=== PATIENT | male | born 1945 | race American Indian/Alaskan Native ===

== ENCOUNTER 2020-11-28 00:53 | Observation (INO) | payer MEDICARE ==
--- NOTE | 2020-11-28 02:52 | Emergency Department Report ---
ED Altered Mental Status HPI - General Chief Complaint: Altered Mental Status Stated Complaint: ALTERED MENTAL STATUS PUI?: No Time Seen by Provider: 11/28/20 02:43 Source: patient, family, EMS Mode of arrival: Ambulatory Limitations: Altered Mental Status - History of Present Illness Initial Comments: Chief complaint: Altered mental status HPI: This is a 75-year-old male with history of lung cancer on chemotherapy who presents via EMS from police station for altered mental status. Patient was being transported from [place]. The driver medic of the car dropped him off at police station near [place]. Patient denies any pain or discomfort. He does think that the year 2002. He lives in [facility] according to his driver medic's license. His daughter was contacted by phone by nursing staff member. She states that over the last two weeks he has been forgetful. Patient retired. He lives alone. Patient was not able to give his address. According to his driver medic's license, Patient lives [address] [place] [address] daughter: Domenica Blankenship/ [phone] LACY Complaint: confusion -: month(s) (Several months according to the daughter's history to nurse) Severity: mild Consistency of Symptoms: unknown Context: cancer (Lung cancer on chemotherapy) Associated Symptoms: denies other symptoms - Related Data Allergies Allergy/AdvReac Type Severity Reaction Status Date / Time No Known Allergies Allergy Unverified 11/28/20 01:23 ED Review of Systems ROS: Stated complaint: ALTERED MENTAL STATUS Other details as noted in HPI Comment: Unobtainable due to pts medical conditions (Patient would not cooperate with history) ED Past Medical Hx - Past Medical History Previous Medical History?: Yes Hx Hypertension: Yes Hx of Cancer: Yes (lung) Hx Asthma: Yes Hx COPD: Yes Additional medical history: not sure if patient is giving me his correct PMH - Surgical History Past Surgical History?: Yes Additional Surgical History: abdominal - Social History Smoking Status: Current Every Day Smoker Substance Use Type: None ED Physical Exam - General Limitations: Altered Mental Status General appearance: alert, in no apparent distress, other (Ambulatory without difficulty, nontoxic-appearing, cantankerous slightly agitated) - Head Head exam: Present: atraumatic, normocephalic - Eye Eye exam: Present: normal appearance - ENT ENT exam: Present: mucous membranes moist - Neck Neck exam: Present: normal inspection, full ROM - Respiratory Respiratory exam: Present: normal lung sounds bilaterally. Absent: respiratory distress, wheezes, rales, rhonchi - Cardiovascular Cardiovascular Exam: Present: regular rate, normal rhythm, normal heart sounds. Absent: systolic murmur, diastolic murmur, rubs, gallop - GI/Abdominal GI/Abdominal exam: Present: soft, normal bowel sounds. Absent: distended, tenderness, guarding, rebound - Rectal Rectal exam: Present: deferred - Extremities Exam Extremities exam: Present: normal inspection - Back Exam Back exam: Present: normal inspection - Neurological Exam Neurological exam: Present: alert, other (Oriented to name, unclear situation, he understands that he is at a hospital) - Psychiatric Psychiatric exam: Present: normal affect, agitated - Skin Skin exam: Present: warm, dry, intact, normal color. Absent: rash ED Course Vital Signs 11/28/20 01:30 Temperature 98.7 F Pulse Rate 92 H Respiratory 16 Rate Blood Pressure 152/100 [Left] O2 Sat by Pulse 95 Oximetry - Lab Data Result diagrams: 11/28/20 03:00 11/28/20 03:00 Lab Results 11/28/20 11/28/20 11/28/20 Range/Units 03:00 03:00 03:00 WBC 6.9 (4.5-11.0) K/mm3 RBC 3.77 (3.65-5.03) M/mm3 Hgb 12.4 (11.8-15.2) gm/dl Hct 36.1 (35.5-45.6) % MCV 96 H (84-94) fl MCH 33 H (28-32) pg MCHC 34 (32-34) % RDW 13.5 (13.2-15.2) % Plt Count 219 (140-440) K/mm3 Lymph % (Auto) 6.2 L (13.4-35.0) % [place] % (Auto) 6.5 (0.0-7.3) % Eos % (Auto) 0.1 (0.0-4.3) % Baso % (Auto) 0.5 (0.0-1.8) % Lymph # (Auto) 0.4 L (1.2-5.4) K/mm3 [place] # (Auto) 0.5 (0.0-0.8) K/mm3 Eos # (Auto) 0.0 (0.0-0.4) K/mm3 Baso # (Auto) 0.0 (0.0-0.1) K/mm3 Seg Neutrophils % 86.7 H (40.0-70.0) % Seg Neutrophils # 6.0 (1.8-7.7) K/mm3 Sodium 132 L (137-145) mmol/L Potassium 3.8 (3.6-5.0) mmol/L Chloride 92.9 L (98-107) mmol/L Carbon Dioxide 29 (22-30) mmol/L Anion Gap 14 mmol/L BUN 23 H (9-20) mg/dL Creatinine 0.9 (0.8-1.3) mg/dL Estimated GFR > 60 ml/min BUN/Creatinine Ratio 26 % Glucose 198 H (75-100) mg/dL Calcium 9.4 (8.4-10.2) mg/dL Total Bilirubin 0.60 (0.1-1.2) mg/dL AST 15 (5-40) units/L ALT 10 (7-56) units/L Alkaline Phosphatase 76 (35-129) units/L Ammonia < 10.0 L (25-60) umol/L Troponin T < 0.010 (0.00-0.029) ng/mL Total Protein 8.1 (6.3-8.2) g/dL Albumin 4.2 (3.9-5) g/dL Albumin/Globulin Ratio 1.1 % TSH (0.270-4.200) mlU/mL Urine Color (Yellow) Urine Turbidity (Clear) Urine pH (5.0-7.0) Ur Specific Sunflower (1.003-1.030) Urine Protein (Negative) mg/dL Urine Glucose (UA) (Negative) mg/dL Urine Ketones (Negative) mg/dL Urine Blood (Negative) Urine Nitrite (Negative) Urine Bilirubin (Negative) Urine Urobilinogen (<2.0) mg/dL Ur Leukocyte Esterase (Negative) Urine WBC (Auto) (0.0-6.0) /HPF Urine RBC (Auto) (0.0-6.0) /HPF Urine Mucus /HPF Salicylates (2.8-20.0) mg/dL Acetaminophen (10.0-30.0) ug/mL Plasma/Serum Alcohol (0-0.07) % 11/28/20 11/28/20 11/28/20 Range/Units 03:00 03:00 03:00 WBC (4.5-11.0) K/mm3 RBC (3.65-5.03) M/mm3 Hgb (11.8-15.2) gm/dl Hct (35.5-45.6) % MCV (84-94) fl MCH (28-32) pg MCHC (32-34) % RDW (13.2-15.2) % Plt Count (140-440) K/mm3 Lymph % (Auto) (13.4-35.0) % [place] % (Auto) (0.0-7.3) % Eos % (Auto) (0.0-4.3) % Baso % (Auto) (0.0-1.8) % Lymph # (Auto) (1.2-5.4) K/mm3 [place] # (Auto) (0.0-0.8) K/mm3 Eos # (Auto) (0.0-0.4) K/mm3 Baso # (Auto) (0.0-0.1) K/mm3 Seg Neutrophils % (40.0-70.0) % Seg Neutrophils # (1.8-7.7) K/mm3 Sodium (137-145) mmol/L Potassium (3.6-5.0) mmol/L Chloride (98-107) mmol/L Carbon Dioxide (22-30) mmol/L Anion Gap mmol/L BUN (9-20) mg/dL Creatinine (0.8-1.3) mg/dL Estimated GFR ml/min BUN/Creatinine Ratio % Glucose (75-100) mg/dL Calcium (8.4-10.2) mg/dL Total Bilirubin (0.1-1.2) mg/dL AST (5-40) units/L ALT (7-56) units/L Alkaline Phosphatase (35-129) units/L Ammonia (25-60) umol/L Troponin T (0.00-0.029) ng/mL Total Protein (6.3-8.2) g/dL Albumin (3.9-5) g/dL Albumin/Globulin Ratio % TSH 2.710 (0.270-4.200) mlU/mL Urine Color (Yellow) Urine Turbidity (Clear) Urine pH (5.0-7.0) Ur Specific Sunflower (1.003-1.030) Urine Protein (Negative) mg/dL Urine Glucose (UA) (Negative) mg/dL Urine Ketones (Negative) mg/dL Urine Blood (Negative) Urine Nitrite (Negative) Urine Bilirubin (Negative) Urine Urobilinogen (<2.0) mg/dL Ur Leukocyte Esterase (Negative) Urine WBC (Auto) (0.0-6.0) /HPF Urine RBC (Auto) (0.0-6.0) /HPF Urine Mucus /HPF Salicylates < 0.3 L (2.8-20.0) mg/dL Acetaminophen < 5.0 L (10.0-30.0) ug/mL Plasma/Serum Alcohol (0-0.07) % 11/28/20 11/28/20 Range/Units 03:00 Unknown WBC (4.5-11.0) K/mm3 RBC (3.65-5.03) M/mm3 Hgb (11.8-15.2) gm/dl Hct (35.5-45.6) % MCV (84-94) fl MCH (28-32) pg MCHC (32-34) % RDW (13.2-15.2) % Plt Count (140-440) K/mm3 Lymph % (Auto) (13.4-35.0) % [place] % (Auto) (0.0-7.3) % Eos % (Auto) (0.0-4.3) % Baso % (Auto) (0.0-1.8) % Lymph # (Auto) (1.2-5.4) K/mm3 [place] # (Auto) (0.0-0.8) K/mm3 Eos # (Auto) (0.0-0.4) K/mm3 Baso # (Auto) (0.0-0.1) K/mm3 Seg Neutrophils % (40.0-70.0) % Seg Neutrophils # (1.8-7.7) K/mm3 Sodium (137-145) mmol/L Potassium (3.6-5.0) mmol/L Chloride (98-107) mmol/L Carbon Dioxide (22-30) mmol/L Anion Gap mmol/L BUN (9-20) mg/dL Creatinine (0.8-1.3) mg/dL Estimated GFR ml/min BUN/Creatinine Ratio % Glucose (75-100) mg/dL Calcium (8.4-10.2) mg/dL Total Bilirubin (0.1-1.2) mg/dL AST (5-40) units/L ALT (7-56) units/L Alkaline Phosphatase (35-129) units/L Ammonia (25-60) umol/L Troponin T (0.00-0.029) ng/mL Total Protein (6.3-8.2) g/dL Albumin (3.9-5) g/dL Albumin/Globulin Ratio % TSH (0.270-4.200) mlU/mL Urine Color Yellow (Yellow) Urine Turbidity Clear (Clear) Urine pH 5.0 (5.0-7.0) Ur Specific Sun[place] 1.025 (1.003-1.030) Urine Protein 30 mg/dl (Negative) mg/dL Urine Glucose (UA) Neg (Negative) mg/dL Urine Ketones 20 (Negative) mg/dL Urine Blood Neg (Negative) Urine Nitrite Neg (Negative) Urine Bilirubin Neg (Negative) Urine Urobilinogen 2.0 (<2.0) mg/dL Ur Leukocyte Esterase Neg (Negative) Urine WBC (Auto) 1.0 (0.0-6.0) /HPF Urine RBC (Auto) 1.0 (0.0-6.0) /HPF Urine Mucus Few /HPF Salicylates (2.8-20.0) mg/dL Acetaminophen (10.0-30.0) ug/mL Plasma/Serum Alcohol < 0.01 (0-0.07) % - Radiology Data Radiology results: report reviewed Patient Name: PATRICIA ECHEVARRIA Gender: Male Date of : 1945 Referring Provider: BENIGNO RAZO Organization: [facility] Accession Number: [id number] Requested Date: November 28, 2020 03:08 Report Status: Final Requested Procedure: 1 Procedure Description: CT head/brain wo con Modality: CT Findings Reporting MD: Julia Casey Dictation Time: November 28, 2020 02:20 Elevator Technician: Not available Vice President Payer Date: CT head/brain wo con INDICATION / CLINICAL INFORMATION: Altered Mental Status. TECHNIQUE: Axial CT imaging of the brain was obtained without contrast. Coronal and sagittal reformatted imaging obtained and reviewed. All CT scans at this location are performed using CT dose reduction for ALARA by means of automated exposure control. COMPARISON: None available. FINDINGS: No intracranial hemorrhage, mass or midline shift is noted. No extra-axial fluid collection or suggestion of acute territorial infarction. There is age-appropriate mild atrophy involving the cerebrum and cerebellum. There is fairly extensive white matter disease bilaterally most likely due to severe microangiopathy. There is fairly extensive mucosal thickening throughout both maxillary sinuses and throughout the ethmoid air cells bilaterally. Minimal mucosal thickening is noted in the sphenoid sinuses and frontal sinuses. A small air-fluid level is noted within the left maxillary sinus. No calvarial abnormality. IMPRESSION: 1. Pansinusitis mostly affecting the maxillary sinuses and ethmoid air cells. 2. Age-related changes within the brain but no definite acute intracranial abnormality. Signer Name: Julia Casey MD Signed: 11/28/2020 2:20 AM Workstation Name: [email or web address] Patient Name: PATRICIA ECHEVARRIA Gender: Male Date of : 1945 Referring Provider: BENIGNO RAZO Organization: [facility] Accession Number: [id number] Requested Date: November 28, 2020 02:49 Report Status: Final Requested Procedure: 1 Procedure Description: XR chest 1V ap Modality: XR Findings Reporting MD: Julia Casey Dictation Time: November 28, 2020 02:46 Elevator Technician: Not available Vice President Payer Date: CHEST 1 VIEW INDICATION / CLINICAL INFORMATION: Altered Mental Status. COMPARISON: None available. FINDINGS: SUPPORT DEVICES: None. HEART / MEDIASTINUM: No significant abnormality. LUNGS / PLEURA: There is focal parenchymal disease surrounding the left pulmonary hilum. There is questionable pulmonary nodule in the left perihilar region as well measuring 2 cm. The right lung is grossly clear. No pleural effusion. No pneumothorax. ADDITIONAL FINDINGS: No significant additional findings. IMPRESSION: 1. Left perihilar parenchymal disease with possible 2 cm pulmonary nodule. It is difficult to determine whether findings are due to pneumonia or possibly malignancy. Chest CT with contrast, if possible, would better evaluate this region. Signer Name: Julia Casey MD Signed: 11/28/2020 2:46 AM Workstation Name: [email or web address] - Medical Decision Making Altered mental status: Differential diagnosis includes Metastatic intracranial tumor with history of lung cancer, dementia, acute delirium due to infection such as UTI, CVA, vitamin deficiency such as Warnicke's encephalopathy Patient lives alone, daughter lives in [place]. Patient has a large suitcase full clothes. He also has a trash bag containing his belongings. I am unable to contact daughter. However daughter did speak with EMS and another staff member. Chemistry notable for hyponatremia. X-ray revealed small lung mass. Patient is admitted to the hospital service for further treatment evaluation. Critical care attestation.: If time is entered above; I have spent that time in minutes in the direct care of this critically ill patient, excluding procedure time. ED Disposition Clinical Impression: Lung cancer, Acute encephalopathy, Dehydration Disposition: DC-[id number] OP ADMIT IP TO THIS HOSP Is pt being admited?: Yes Does the pt Need Aspirin: No Condition: Stable
[2020-11-28] MEDS ORDERED: HALOPERIDOL LACTATE 5 MG/1 ML INJ IM ONE (02:54)
[2020-11-28] MEDS ORDERED: LORazepam 2 MG/ML VIAL IM ONE (02:54)
[2020-11-28 03:14] LABS: Basophils % (Auto) 0.5 % (0.0-1.8); Eosinophils % (Auto) 0.1 % (0.0-4.3); Hematocrit 36.1 % (35.5-45.6); Hemoglobin 12.4 gm/dl (11.8-15.2); Lymphocytes # (Auto) 0.4 K/mm3 (1.2-5.4); Lymphocytes % (Auto) 6.2 % (13.4-35.0); Mean Corpuscular HGB Conc 34 % (32-34); Mean Corpuscular Volume 96 fl (84-94); Monocytes # (Auto) 0.5 K/mm3 (0.0-0.8); Monocytes % (Auto) 6.5 % (0.0-7.3); Platelet Count 219 K/mm3 (140-440); Red Blood Count 3.77 M/mm3 (3.65-5.03); Red Cell Distribution Width 13.5 % (13.2-15.2)
[2020-11-28 03:18] LABS: Bilirubin,Urine NEG (Negative); Blood,Urine NEG (Negative); Color,Urine Yellow (Yellow); Mucus,Urine FEW /HPF
--- NOTE | 2020-11-28 03:25 | Cat Scan Report ---
CT head/brain wo con INDICATION / CLINICAL INFORMATION: Altered Mental Status. TECHNIQUE: Axial CT imaging of the brain was obtained without contrast. Coronal and sagittal reformatted imaging obtained and reviewed. All CT scans at this location are performed using CT dose reduction for ALAR A by means of automated exposure control. COMPARISON: None available. FINDINGS: No intracranial hemorrhage, mass or midline shift is noted. No extra-axial fluid collection or sugges tion of acute territorial infarction. There is age-appropriate mild atrophy involving the cerebrum an d cerebellum. There is fairly extensive white matter disease bilaterally most likely due to severe mi croangiopathy. There is fairly extensive mucosal thickening throughout both maxillary sinuses and throughout the eth moid air cells bilaterally. Minimal mucosal thickening is noted in the sphenoid sinuses and frontal s inuses. A small air-fluid level is noted within the left maxillary sinus. No calvarial abnormality. IMPRESSION: 1. Pansinusitis mostly affecting the maxillary sinuses and ethmoid air cells. 2. Age-related changes within the brain but no definite acute intracranial abnormality. Signer Name: Julia Casey MD Signed: 11/28/2020 3:20 AM Workstation Name: [id number]
--- NOTE | 2020-11-28 03:50 | XRay Report ---
CHEST 1 VIEW INDICATION / CLINICAL INFORMATION: Altered Mental Status. COMPARISON: None available. FINDINGS: SUPPORT DEVICES: None. HEART / MEDIASTINUM: No significant abnormality. LUNGS / PLEURA: There is focal parenchymal disease surrounding the left pulmonary hilum. There is que stionable pulmonary nodule in the left perihilar region as well measuring 2 cm. The right lung is darrell ssly clear. No pleural effusion. No pneumothorax. ADDITIONAL FINDINGS: No significant additional findings. IMPRESSION: 1. Left perihilar parenchymal disease with possible 2 cm pulmonary nodule. It is difficult to determi ne whether findings are due to pneumonia or possibly malignancy. Chest CT with contrast, if possible, would better evaluate this region. Signer Name: Julia Casey MD Signed: 11/28/2020 3:46 AM Workstation Name: [id number]
[2020-11-28 04:03] LABS: Alanine Aminotransferase 10 units/L (7-56); Albumin 4.2 g/dL (3.9-5); BUN/Creatinine Ratio 26; Blood Urea Nitrogen 23 mg/dL (9-20); Calcium 9.4 mg/dL (8.4-10.2); Hemolysis Index 0
[2020-11-28] MEDS ORDERED: ONDANSETRON 4 MG/2 ML INJ IV PRN (04:29)
[2020-11-28] MEDS ORDERED: ACETAMINOPHEN 325 MG TAB PO PRN (04:29)
[2020-11-28] MEDS ORDERED: MAGNESIUM HYDROXIDE (MOM) ORAL LIQD UDC PO PRN (04:29)
[2020-11-28] MEDS ORDERED: SENNOSIDES 8.6 MG TAB PO PRN (04:29)
[2020-11-28] MEDS ORDERED: ALUM-MAG HYDROXIDE-SIMETHICONE 200-200-20MG/5ML ORAL LIQD 30 ML PO PRN (04:29)
--- NOTE | 2020-11-28 04:32 | History and Physical Report ---
History of Present Illness Date of examination: 11/28/20 Date of admission: 11/28/20 Chief complaint: Confused History of present illness: This is a 75-year-old male with history of lung cancer on chemotherapy who presents via EMS from police station for altered mental status. Patient was being transported from [place]. The yard driver of the car dropped him off at police station near [place]. Patient denies any pain or discomfort. He does think that the year 2002. He lives in [facility] according to his yard driver's license. His daughter was contacted by phone by nursing staff member. She states that over the last two weeks he has been forgetful. Patient retired. He lives alone. ED work-up WBC 6.9, hemoglobin 12.4, platelets 219, sodium 133, potassium 3.8, creatinine 0.9, serum glucose 198, calcium 9.4 CT of the head done no acute finding. Patient seen at bedside in the ED patient is sleeping easy to arouse. Patient is confused came with altered mental status. Reviewed the lab medication record and vital signs no acute finding PT OT consulted social work also consulted. Past History Past Medical History: cancer (lung cancer) Past Surgical History: No surgical history Social history: no significant social history, Lives alone Family history: no significant family history (Unable to get history from patient due to altered mental status) Medications and Allergies Allergies Allergy/AdvReac Type Severity Reaction Status Date / Time No Known Allergies Allergy Verified 11/28/20 04:33 Review of Systems Ears, nose, mouth and throat: no epistaxis, no bleeding gums Cardiovascular: no chest pain Respiratory: no congestion Genitourinary Male: no hematuria Rectal: no hemorrhoids Musculoskeletal: muscle weakness Integumentary: no rash, no pruritis Neurological: confusion, memory loss, sensory deficit Psychiatric: confusion Hematologic/Lymphatic: no easy bruising, no easy bleeding Allergic/Immunologic: no urticaria Exam - Constitutional Vitals: Temp Pulse Resp BP Pulse Ox 98.7 F 92 H 16 152/100 95 11/28/20 01:30 11/28/20 01:30 11/28/20 01:30 11/28/20 01:30 11/28/20 01:30 General appearance: Present: no acute distress, cachectic - EENT Eyes: Present: PERRL ENT: hearing intact, clear oral mucosa - Neck Neck: Present: supple, normal ROM - Respiratory Respiratory effort: normal Respiratory: bilateral: CTA - Cardiovascular Heart Sounds: Present: S1 & S2. Absent: rub, click - Extremities Extremities: pulses symmetrical, No edema Peripheral Pulses: within normal limits - Abdominal General gastrointestinal: Present: soft, non-tender, non-distended, normal bowel sounds Male genitourinary: Present: normal - Integumentary Integumentary: Present: clear, warm, dry - Musculoskeletal Musculoskeletal: strength equal bilaterally, generalized weakness - Psychiatric Psychiatric: other (confused) - Neurologic Neurologic: CNII-XII intact, moves all extremities - Allied Health Allied health notes reviewed: nursing, PT, OT, social work HEART Score - HEART Score Troponin: Troponin T < 0.010 ng/mL (0.00-0.029) 11/28/20 03:00 Results - Labs CBC & Chem 7: 11/28/20 03:00 11/28/20 03:00 Labs: Abnormal lab results 11/28/20 11/28/20 11/28/20 Range/Units 03:00 03:00 03:00 MCV 96 H (84-94) fl MCH 33 H (28-32) pg Lymph % (Auto) 6.2 L (13.4-35.0) % Lymph # (Auto) 0.4 L (1.2-5.4) K/mm3 Seg Neutrophils % 86.7 H (40.0-70.0) % Sodium 132 L (137-145) mmol/L Chloride 92.9 L (98-107) mmol/L BUN 23 H (9-20) mg/dL Glucose 198 H (75-100) mg/dL Ammonia < 10.0 L (25-60) umol/L Salicylates (2.8-20.0) mg/dL Acetaminophen (10.0-30.0) ug/mL 11/28/20 11/28/20 Range/Units 03:00 03:00 MCV (84-94) fl MCH (28-32) pg Lymph % (Auto) (13.4-35.0) % Lymph # (Auto) (1.2-5.4) K/mm3 Seg Neutrophils % (40.0-70.0) % Sodium (137-145) mmol/L Chloride (98-107) mmol/L BUN (9-20) mg/dL Glucose (75-100) mg/dL Ammonia (25-60) umol/L Salicylates < 0.3 L (2.8-20.0) mg/dL Acetaminophen < 5.0 L (10.0-30.0) ug/mL Assessment and Plan - Patient Problems (1) Acute encephalopathy Current Visit: Yes Status: Acute Plan to address problem: Questionable cause May be due to concern metastasis from the lungs Safety and fall precaution at all time CT of the head showed age related changes within the brain but no definite acute intracranial abnormalities tray line worker, PT and OT consults. Follow-up with recommendation Chest x-ray (2) Dehydration Current Visit: Yes Status: Acute Plan to address problem: Low sodium likely secondary to dehydration Gentle IV hydration with normal saline Monitor sodium level (3) Lung cancer Current Visit: Yes Status: Acute Plan to address problem: Supportive care Per patient medical record patient is on chemotherapy (4) Hyponatremia Current Visit: Yes Status: Acute Plan to address problem: Likely secondary to dehydration Continue IV hydration with normal saline monitor sodium level (5) DVT prophylaxis Current Visit: Yes Status: Acute Plan to address problem: Subcutaneous Lovenox
[2020-11-28] MEDS ORDERED: hydrALAZINE 20 MG/1 ML INJ IV PRN (06:43)
[2020-11-28] MEDS: D5W/0.9% NACL 1,000 ML IV SCH (09:59)
[2020-11-28] MEDS ORDERED: ENOXAPARIN 30 MG/0.3 ML INJ SUB-Q SCH (10:00)
[2020-11-28] MEDS ORDERED: amLODIPine 5 MG TAB PO SCH (10:00)
[2020-11-28] MEDS ORDERED: ENOXAPARIN 40 MG/0.4 ML INJ SUB-Q SCH (10:00)
[2020-11-28] MEDS: INSULIN LISPRO 100 UNIT/ML SUB-Q SCH ×3 (10:02→16:30)
--- NOTE | 2020-11-28 13:09 | Event Note ---
Date: 11/28/20 Patient seen and examined today. Mental status improving. patient still with some part of his memory about arriving to the hospital. Will obtain CT of the chest on arrival to head. Anticipate discharge in a.m. she he states that he has a oncologist that he follows. We will also try to reach out to the daughter to get further information about his clinical condition.
--- NOTE | 2020-11-28 13:40 | Cat Scan Report ---
CT CHEST WITH CONTRAST INDICATION / CLINICAL INFORMATION: metastatic disease 100 ml omni 300 . TECHNIQUE: Axial CT images were obtained through the chest after IV contrast. All CT scans at this location are performed using CT dose reduction for ALARA by means of automated exposure control. COMPARISON: None available. FINDINGS: HEART: No significant abnormality. THORACIC AORTA: No significant abnormality. MEDIASTINUM and ALONDRA: No significant abnormality. LUNGS: Homogeneous 2.6 x 1.7 standard lobular density left lower lobe is present Chronic lung disease is present No acute air space or interstitial disease. PLEURA: No significant pleural effusion. No pneumothorax. ADDITIONAL FINDINGS: None. UPPER ABDOMEN: Upper abdominal imaging is limited secondary to streak artifact SKELETAL SYSTEM: No significant abnormality. IMPRESSION: 1. Left lower lobe lung mass worrisome for lung carcinoma. Signer Name: Josh Amaya MD Signed: 11/28/2020 1:36 PM Workstation Name: [id number]
[2020-11-29] MEDS: D5W/0.9% NACL 1,000 ML IV SCH (00:17)
[2020-11-29 03:45] VITALS: BP 144/91
[2020-11-29 05:54] LABS: Eosinophils % (Auto) 0.6 % (0.0-4.3); Hematocrit 31.1 % (35.5-45.6); Hemoglobin 10.7 gm/dl (11.8-15.2); Lymphocytes # (Auto) 0.3 K/mm3 (1.2-5.4); Lymphocytes % (Auto) 8.8 % (13.4-35.0); Mean Corpuscular HGB Conc 35 % (32-34); Mean Corpuscular Volume 95 fl (84-94); Monocytes # (Auto) 0.3 K/mm3 (0.0-0.8); Monocytes % (Auto) 8.1 % (0.0-7.3); Platelet Count 209 K/mm3 (140-440); Red Blood Count 3.29 M/mm3 (3.65-5.03); Red Cell Distribution Width 13.3 % (13.2-15.2)
[2020-11-29 06:13] LABS: Alanine Aminotransferase 9 units/L (7-56); Albumin 3.2 g/dL (3.9-5); Blood Urea Nitrogen 14 mg/dL (9-20); Calcium 8.1 mg/dL (8.4-10.2); Hemolysis Index 1
[2020-11-29 06:27] LABS: BUN/Creatinine Ratio 23
--- NOTE | 2020-11-29 10:59 | Discharge Summary ---
Providers - Providers Date of Admission: 11/28/20 15:54 Attending physician: JANEEN MITCHELL MD 11/28/20 02:55 Consult to Case Management [CONS] Stat Services Needed at Discharge: [employer] Sales Manager Notified:: n Additional Physician Instructions: likely undiagnosed dementia, needs family to help with treatment plan 11/28/20 04:31 Occupational Therapy Evaluate and Treat [CONS] Stat Comment: Reason For Exam: weakness Physical Therapy Evaluation and Treat [CONS] Stat Comment: Reason For Exam: weakness and ams Primary care physician: LINEN ROOM ATTENDANT Hospitalization Reason for admission: Acute encephalopathy Condition: Stable Hospital course: This is a 75-year-old male with history of lung cancer on chemotherapy who [place] via EMS from police station for altered mental status. Patient was being transported from [place]. The driver/guide of the car dropped him off at police station near [place]. Patient denies any pain or discomfort. He does think that the year 2002. He lives in [facility] according to his driver/guide's license. His daughter was contacted by phone by nursing staff member. She states that over the last two weeks he has been forgetful. Patient retired. He lives alone. ED work-up WBC 6.9, hemoglobin 12.4, platelets 219, sodium 133, potassium 3.8, creatinine 0.9, serum glucose 198, calcium 9.4 CT of the head done no acute finding. Patient seen at bedside in the ED patient is sleeping easy to arouse. Patient is confused came with altered mental status. Reviewed the lab medication record and vital signs no acute finding PT OT consulted social work also consulted. 11/29: Following reevaluation yesterday this morning the patient was belligerent wants to be discharged he dressed himself up and has been walking around nursing staff also reports that he did this yesterday. He tells me that he actually was coming from his daughter's place in [place] when he got into an argument with the driver/guide driving him for dropped him off in [place]. He knows that he lives in [place] he admits that he was a bit confused yesterday because of the scenario and things that were going on. He did call his daughter while I was in the room and also his niece to come get him as he would like to be discharged. I did speak to the daughter extensively about our recommendation for possible an MRI which the patient vehemently refuses. He is being discharged as he is refused any further medical management and will follow up with his oncologist outpatient. CT of the brain was unremarkable although an MRI was recommended and not done. Lung CTs does show a mass in the lungs concerning for lung cancer. This has been discussed with the patient family (1) Acute metabolic encephalopathy Current Visit: Yes Status: Acute Plan to address problem: Questionable cause May be due to concern metastasis from the lungs Safety and fall precaution at all time CT of the head showed age related changes within the brain but no definite acute intracranial abnormalities workers compensation claims examiner, PT and OT consults. Follow-up with recommendation Chest x-ray (2) Dehydration Current Visit: Yes Status: Acute Plan to address problem: Low sodium likely secondary to dehydration Gentle IV hydration with normal saline Monitor sodium level (3) Lung cancer Current Visit: Yes Status: Acute Plan to address problem: Supportive care Per patient medical record patient is on chemotherapy (4) Hyponatremia Current Visit: Yes Status: Acute Plan to address problem: Likely secondary to dehydration Continue IV hydration with normal saline monitor sodium level Disposition: DC-01 TO HOME OR SELFCARE Final Discharge Diagnosis (Prints w/discharge instructions): lung ca with acute metabolic encephalopathy Time spent for discharge: 35 mins Core Measure Documentation - Palliative Care Palliative Care/ Comfort Measures: Not Applicable - Core Measures Any of the following diagnoses?: none Exam - Physical Exam Narrative exam: VITAL SIGNS: Reviewed. GENERAL: The patient appears normally developed, otherwise cachectic vital signs as documented. HEAD: No signs of head trauma. EYES: Pupils are equal. Extraocular motions intact. EARS: Hearing grossly intact. MOUTH: Oropharynx is normal. NECK: No adenopathy, no JVD. CHEST: Chest with clear breath sounds bilaterally. No wheezes, rales, or rh onchi. CARDIAC: Regular rate and rhythm. S1 and S2, without murmurs, gallops, or rubs. VASCULAR: No Edema. Peripheral pulses normal and equal in all extremities. ABDOMEN: Soft, non tender and non distended. No rebound or guarding, and no masses palpated. Bowel Sounds normal. MUSCULOSKELETAL: Good range of motion of all major joints. Extremities without clubbing, cyanosis or edema. NEUROLOGIC EXAM: Alert and oriented x 3 No focal sensory or strength deficits. Speech normal. Follows commands. PSYCHIATRIC: Mood normal. SKIN: detail exam as documented in skin assessment - Constitutional Vitals: Temp Pulse Resp BP Pulse Ox 98.3 F 77 16 144/91 99 11/29/20 03:11 11/29/20 03:11 11/29/20 03:11 11/29/20 03:11 11/29/20 03:11 Plan Activity: advance as tolerated, fall precautions Diet: low fat Special Instructions: record daily weights, record daily BP diary Plan of Treatment: Must follow with your oncologist. Our recommendation is for MRI of the brain to further evaluate malignant spread Follow up with: PRIMARY CARE, [Primary Care Provider] - 7 Days Prescriptions: amLODIPine 5 mg PO QDAY #30 tablet
== END 2020-11-29 11:25 | disposition home or self-care (01) ==
LOC: ED 00:53 → 4A 04:13 → OBSVTOIN 15:54 → INTOOBSV 15:54
PROVIDERS: ADMIT Internal Medicine Geriatric Medicine; ATTEND Internal Medicine
DX: G93.40 Encephalopathy, unspecified (principal); C34.90 Malignant neoplasm of unspecified part of unspecified bronchus or lung; E86.0 Dehydration; E87.1 Hypo-osmolality and hyponatremia; I10 Essential (primary) hypertension; J44.9 Chronic obstructive pulmonary disease, unspecified; F17.200 Nicotine dependence, unspecified, uncomplicated; M25.59 Pain in other specified joint; R53.1 Weakness; R26.9 Unspecified abnormalities of gait and mobility; Z79.899 Other long term (current) drug therapy; Z98.890 Other specified postprocedural states
CPT/HCPCS: 36415; 70450; 71045; 71260; 80053; 81001; 82140; 82962; 84443; 84484; 85025; 96360; 96361; 96372; 97116; 97162; 97165; 99285; G0378; J1630; J1650; J2060; J7042; 80320; G0480; J1815